=== PATIENT | female | born 1980 ===

== ENCOUNTER 2023-12-25 07:58 | Emergency (ER) | payer BC ==
[~2023-12-25] VITALS: Ht 162.6 cm; Wt 113.2 kg
[2023-12-25 08:03] VITALS: BP 106/70; TEMP 98.5
[2023-12-25] MEDS ORDERED: DECADRON OPHTH D5 ML OP (08:33)
[2023-12-25] MEDS ORDERED: AMOXICILLIN875 MG PO (08:33)
[2023-12-25 08:40] VITALS: PULSE 89
== END 2023-12-25 08:41 | disposition home or self-care (01) ==
LOC: COL.ER 07:58
DX: H66.93 Otitis media, unspecified, bilateral (principal)